=== PATIENT | female | born 1990 | race Caucasian/White ===

== ENCOUNTER 2022-08-27 07:57 | Emergency (ER) | payer OTHER, SELFPAY ==
--- NOTE | ~2022-08-27 | CT_ITS ---
EXAMINATION: CT ABDOMEN AND PELVIS WITHOUT CONTRAST CLINICAL INFORMATION: Right flank pain COMPARISON: None available. TECHNIQUE: Multidetector volumetric imaging was performed from the superior aspect of the liver through the pubic symphysis. Sagittal and coronal reformatted images were obtained on the technologist's workstation. This CT examination was performed using dose optimization techniques as appropriate, variously including the following: *Automated exposure control *Adjustment of mA and/or kV according to patient size (this includes techniques or standardized protocols for targeted exams where dose is matched to indication/reason for exam; i.e. extremities or head) *Use of iterative reconstruction technique DLP: 677 mGy-cm FINDINGS: LUNG BASES: The visualized lung bases are unremarkable. LIVER, GALLBLADDER, AND BILIARY TREE: The liver is normal in size, shape, and attenuation. No focal hepatic lesion or biliary ductal dilatation is present. The gallbladder is unremarkable with no evidence of radiopaque gallstones, gallbladder wall thickening, or obvious pericholecystic inflammatory changes. PANCREAS: Unremarkable. SPLEEN: Unremarkable. ADRENAL GLANDS: Unremarkable. KIDNEYS AND URETERS: Mild right hydronephrosis and ureteral dilatation from a 2 mm right distal ureteral stone. There are small punctate 1 to 2 mm stones in the upper pole of the right kidney. There are small punctate 1 to 2 mm stones in the lower pole of the left kidney. BLADDER: The bladder is empty and not well evaluated. GASTROINTESTINAL TRACT: The small and large bowel are unremarkable. The appendix is unremarkable. ABDOMINAL WALL: No significant hernia is appreciated. LYMPH NODES: Normal. VASCULAR: Unremarkable. PELVIC VISCERA: Unremarkable. OSSEOUS STRUCTURES: Unremarkable. CT/CT abdomen pelvis wo IV con IMPRESSION: Mild right hydronephrosis and ureteral dilatation from a 2 mm right distal ureteral stone. Small bilateral renal stones. Fleischner guidelines were followed.
[2022-08-27 08:10] VITALS: BP 131/59; BP 148/80; PULSE 56; PULSE 99; RESP 17; TEMP 36.7; O2SAT 98; O2SAT 99; BMI 28.8
[2022-08-27 08:19] VITALS: BP 131/59; PULSE 99; RESP 17; TEMP 36.7; O2SAT 98
--- NOTE | 2022-08-27 08:32 | ED_ITS ---
HPI - General Adult General Chief complaint: General Medical Stated complaint: nausea vomiting right flank pain Time Seen by Provider: 08/27/22 08:15 Source: patient Mode of arrival: ambulatory Limitations: no limitations History of Present Illness HPI narrative: 3 hours of intense right flank pain with nausea and vomiting radiating to the front Onset (ago): hour(s) Severity: moderate Quality: burning Pain Consistency: constant Related Data Previous Rx's Medication Instructions Recorded naproxen 500 mg tablet (Naprosyn) 500 mg PO BID #20 tabs 08/27/22 ondansetron 4 mg disintegrating 4 mg PO Q6H PRN nausea and 08/27/22 tablet vomiting #20 tabs tamsulosin 0.4 mg capsule (Flomax) 0.4 mg PO DAILY #20 caps 08/27/22 Allergies Allergy/AdvReac Type Severity Reaction Status Date / Time No Known Allergies Allergy Verified 08/27/22 08:34 Review of Systems Review of Systems: Yes all other systems are reviewed and are negative Gastrointestinal: Comments: nausea, vomiting and flank pain PMFSH Social History Social History Smoked in Last 30 Days: No Use of substances other than those prescribed or required for medical reasons: No Advance Directives: No Advance Directives Information Provided: Yes Physical Exam ED Vital Signs: Vital Signs - 24 hr 08/27/22 08:10 08/27/22 08:19 Temperature 98.1 F 98.1 F Pulse Rate 99 99 Respiratory Rate 17 17 Blood Pressure 131/59 L 131/59 L Pulse Oximetry 98 98 Oxygen Delivery Method Room Air Room Air BMI result Body Mass Index 28.8 Const General: healthy appearing Nutritional Appearance: average body habitus Orientation/consciousness: oriented to person and patient oriented x3 Limitations: no limitations HENMT Head: Yes normal to inspection Ears: external ears normal General nose exam: Normal external nose present Mouth: Normal oral and palatal mucosa present and oropharynx normal Throat: Yes posterior oropharynx normal Eyes General: appearance normal, both eyes and all related structures Neck Neck: Yes normal visual inspection Chest Chest palpation & inspection: normal inspection of the chest Resp Auscultation: clear to auscultation bilaterally Cardio Jugular venous distension: no JVD Rate: regular rate Rhythm: regular rhythm Heart sounds: S1 normal heart sound present and S2 normal heart sound present GI Inspection: Yes normal to inspection Palpation (GI): Soft to palpation, nontender and No hepatosplenomegaly present Auscultation: normal bowel sounds General: Yes no CVA tenderness Back/Spine/Pelvis Back: no CVA tenderness Skin General skin exam: no rashes or lesions noted Neuro General: oriented to person and patient oriented x3 Cranial nerves: Yes CN's II-XII intact bilaterally Motor exam (neuro): 5/5 motor strength present throughout Extrem General: Yes normal to inspection Psych Appearance: grossly normal Course Reevaluation(s) Reevaluation #1: Patient with 2mm stone at the UVJ will dc on nsaids, flomax zofran and follow up with Dr. Rivera Time: 12:32 Medications Administered Discontinued Medications Generic Name Dose Route Start Last Admin Trade Name Freq PRN Reason Stop Dose Admin Sodium Chloride 1,000 mls @ 999 mls/hr 08/27/22 08:45 08/27/22 12:23 Ns IVCONT 08/27/22 10:45 Infused .Q1H1M CAREN Infusion Ketorolac Tromethamine 30 mg 08/27/22 08:34 08/27/22 09:17 Ketorolac Tromethamine 30 Mg/Ml Vial IVPUSH 08/27/22 08:35 30 mg ONCE ONE Administration Ondansetron HCl 4 mg 08/27/22 08:37 08/27/22 09:16 Ondansetron Hcl 4 Mg/2 Ml Vial IVPUSH 08/27/22 08:38 4 mg ONCE ONE Administration Medical Decision Making Differential Diagnosis Differential Diagnoses: The differential diagnosis associated with the presentation includes (renal colic, hydronephrosis, Uti and pyelonephritis, a ppendicitis all considered) Admission/Observation Consideration of admission/observation: Escalation of care including admission/observation considered (with WBC of 14.8 and RLQ pain admission was considered) Lab Data MDM Lab Attestation statement: I reviewed the patient's lab results. 08/27/22 08:44 08/27/22 08:44 Labs: Lab Results 08/27/22 08/27/22 08/27/22 Range/Units 08:44 08:44 09:01 WBC 14.8 H (4.8-10.8) X10*3/uL RBC 5.00 (4.20-5.50) X10*6/uL Hgb 13.8 (12.0-16.0) g/dl Hct 43.1 (37.0-47.0) % MCV 86.2 (80.0-98.0) fL MCH 27.6 (27.0-33.0) pg MCHC 32.0 (31.0-35.0) g/dl RDW 13.2 (11.0-16.0) % Plt Count 296 (160-400) X10*3/uL MPV 11.0 (9.4-12.3) fL Immature Gran % (Auto) 0.5 H (0.0-0.4) % Neut % (Auto) 87.3 H (45-73) % Lymph % (Auto) 6.7 L (20-40) % [place] % (Auto) 4.6 (2-11) % Eos % (Auto) 0.5 (0-4) % Baso % (Auto) 0.4 (0-2) % Lymph # (Auto) 1.0 L (1.2-4.9) X10*3/uL [place] # (Auto) 0.7 (0.1-1.2) X10*3/uL Eos # (Auto) 0.1 (0.0-0.4) X10*3/uL Baso # (Auto) 0.1 (0.0-0.2) X10*3/uL Abs Immat Gran (auto) 0.07 H (0.00-0.03) X10*3/uL Absolute Neuts (auto) 12.9 H (2.0-8.3) x10*3/uL Absolute Nucleated RBC 0.000 (0.0-0.012) X10*3/uL Nucleated RBC % (auto) 0.0 (0.0-0.2) /100WBC Sodium 140 (135-145) mmol/L Potassium 4.4 (3.3-5.1) mmol/L Chloride 111 H (96-108) mmol/L Carbon Dioxide 22 (22-29) mmol/L Anion Gap 11 L (12-20) BUN 11 (9-16) mg/dL Creatinine 0.88 (0.5-1.4) mg/dL Estim Creat Clear Calc 100.3 Estimated GFR > 60 Random Glucose 97 (60-115) mg/dL Calcium 9.3 (8.4-10.2) mg/dL Urine Color Yellow Urine Appearance Cloudy Urine pH 5.5 (5.0-9.0) Ur Specific [place] 1.020 (1.005-1.025) Urine Protein Negative (Neg-Trace) mg/dL Urine Glucose (UA) Negative (Negative) mg/dL Urine Ketones Trace (Negative) mg/dL Urine Blood Negative (Negative) Urine Nitrite Negative (Negative) Ur Leukocyte Esterase Negative (Negative) Urine Test (NEGATIVE) 08/27/22 Range/Units 09:01 WBC (4.8-10.8) X10*3/uL RBC (4.20-5.50) X10*6/uL Hgb (12.0-16.0) g/dl Hct (37.0-47.0) % MCV (80.0-98.0) fL MCH (27.0-33.0) pg MCHC (31.0-35.0) g/dl RDW (11.0-16.0) % Plt Count (160-400) X10*3/uL MPV (9.4-12.3) fL Immature Gran % (Auto) (0.0-0.4) % Neut % (Auto) (45-73) % Lymph % (Auto) (20-40) % [place] % (Auto) (2-11) % Eos % (Auto) (0-4) % Baso % (Auto) (0-2) % Lymph # (Auto) (1.2-4.9) X10*3/uL [place] # (Auto) (0.1-1.2) X10*3/uL Eos # (Auto) (0.0-0.4) X10*3/uL Baso # (Auto) (0.0-0.2) X10*3/uL Abs Immat Gran (auto) (0.00-0.03) X10*3/uL Absolute Neuts (auto) (2.0-8.3) x10*3/uL Absolute Nucleated RBC (0.0-0.012) X10*3/uL Nucleated RBC % (auto) (0.0-0.2) /100WBC Sodium (135-145) mmol/L Potassium (3.3-5.1) mmol/L Chloride (96-108) mmol/L Carbon Dioxide (22-29) mmol/L Anion Gap (12-20) BUN (9-16) mg/dL Creatinine (0.5-1.4) mg/dL Estim Creat Clear Calc Estimated GFR Random Glucose (60-115) mg/dL Calcium (8.4-10.2) mg/dL Urine Color Urine Appearance Urine pH (5.0-9.0) Ur Specific [place] (1.005-1.025) Urine Protein (Neg-Trace) mg/dL Urine Glucose (UA) (Negative) mg/dL Urine Ketones (Negative) mg/dL Urine Blood (Negative) Urine Nitrite (Negative) Ur Leukocyte Esterase (Negative) Urine Test NEGATIVE (NEGATIVE) Independent Interpretation I performed an independent interpretation of an: CT Scan (Hydronephrosis and stones in the kidney) Radiology Impression Discussion of test interpretation with radiology: I have reviewed the radiologist's reading. (2mm stone seen at the UVJ) Discharge Plan Discharge Clinical Impression: Renal colic on right side Patient Disposition: Home, Self-Care Instructions: Renal Colic (ED) Prescriptions: New naproxen [Naprosyn] 500 mg tablet 500 mg PO BID Qty: 20 0RF ondansetron 4 mg tablet,disintegrating 4 mg PO Q6H PRN (Reason: nausea and vomiting) Qty: 20 0RF tamsulosin [Flomax] 0.4 mg capsule 0.4 mg PO DAILY Qty: 20 0RF Referrals: Anthony Rivera MD [Physician] - 5 days
[2022-08-27 08:51] LABS: MANUAL DIFF FLAG NO
[2022-08-27 08:53] LABS: Basophils Absolute Auto 0.1 X10*3/uL (0.0-0.2); Basophils Percent Auto 0.4 % (0-2); Eosinophils Absolute Auto 0.1 X10*3/uL (0.0-0.4); Eosinophils Percent Auto 0.5 % (0-4); Hematocrit 43.1 % (37.0-47.0); Hemoglobin 13.8 g/dl (12.0-16.0); Imm Gran Abs Auto 0.07 X10*3/uL (0.00-0.03); Imm Gran Pct Auto 0.5 % (0.0-0.4); Lymphocytes Percent Auto 6.7 % (20-40); Mean Corpuscular Hemoglobin 27.6 pg (27.0-33.0); Mean Corpuscular Volume 86.2 fL (80.0-98.0); Monocytes Absolute Auto 0.7 X10*3/uL (0.1-1.2); Monocytes Percent Auto 4.6 % (2-11); Neutrophils Absolute Auto 12.9 x10*3/uL (2.0-8.3); Neutrophils Percent Auto 87.3 % (45-73); Platelet Count 296 X10*3/uL (160-400); Red Cell Distribution Width 13.2 % (11.0-16.0); White Blood Count 14.8 X10*3/uL (4.8-10.8)
[2022-08-27 09:07] LABS: Anion Gap 11 (12-20); Blood Urea Nitrogen 11 mg/dL (9-16); Calcium 9.3 mg/dL (8.4-10.2); Carbon Dioxide 22 mmol/L (22-29); Chloride 111 mmol/L (96-108); Creatinine Clr Calc Pharmacy 100.3; Estimated Glomerular Filt Rate > 60; Glucose Random 97 mg/dL (60-115); Potassium 4.4 mmol/L (3.3-5.1); Sodium 140 mmol/L (135-145)
[2022-08-27] MEDS: 0.9 % Sodium Chloride 1,000 ML 999 ML IVCONT ×2 (09:14→09:20)
[2022-08-27] MEDS: ondansetron HCL 4 MG/2 ML VIAL IVPUSH (09:16)
[2022-08-27] MEDS: Ketorolac Tromethamine 30 MG/ML VIAL IVPUSH (09:17)
[2022-08-27 09:19] LABS: Appearance Urine Cloudy; Color Urine Yellow; Glucose Urine UA Negative (Negative); Leukocyte Esterase Urine Negative (Negative); Nitrite Urine Negative (Negative); PH 5.5 (5.0-9.0); UPreg QC Valid YES; Urine Blood Negative (Negative); Urine Ketones Trace mg/dL (Negative); Urine Pregnancy NEGATIVE (NEGATIVE); Urine Protein Negative (Neg-Trace)
--- NOTE | 2022-08-27 09:44 | PC.NURSE ---
pt a&o x4. pleasant, calm, and cooperative. IV access obtained by EMS prior to arrival. medicated per jun. resting quietly on stretcher, in no apparent distress. wctm
== END 2022-08-27 14:01 | disposition home or self-care (01) ==
PROVIDERS: Emergency Provider Emergency Medicine
DX: N23 Unspecified renal colic (principal); R11.2 Nausea with vomiting, unspecified; Z79.899 Other long term (current) drug therapy
CPT/HCPCS: 36415; 74176; 80048; 81003; 81025; 85025; 96361; 96374; 96375; 99284; J1885; J2405

== ENCOUNTER 2023-06-22 20:48 | Emergency (ER) | payer OTHER, SELFPAY ==
--- NOTE | ~2023-06-22 | CT_ITS ---
EXAMINATION: CT ABDOMEN AND PELVIS WITHOUT CONTRAST CLINICAL INFORMATION: Right flank pain COMPARISON: None available. TECHNIQUE: Multidetector volumetric imaging was performed from the superior aspect of the liver through the pubic symphysis. Sagittal and coronal reformatted images were obtained on the technologist's workstation. This CT examination was performed using dose optimization techniques as appropriate, variously including the following: *Automated exposure control *Adjustment of mA and/or kV according to patient size (this includes techniques or standardized protocols for targeted exams where dose is matched to indication/reason for exam; i.e. extremities or head) *Use of iterative reconstruction technique DLP: 501 mGy-cm FINDINGS: LUNG BASES: Lung bases are clear. LIVER, GALLBLADDER, AND BILIARY TREE: The liver is normal in size, shape, and attenuation. No focal hepatic lesion or biliary ductal dilatation is present. The gallbladder is unremarkable with no evidence of radiopaque gallstones, gallbladder wall thickening, or obvious pericholecystic inflammatory changes. PANCREAS: Unremarkable. SPLEEN: Unremarkable. ADRENAL GLANDS: Unremarkable. KIDNEYS AND URETERS: The kidneys are normal in size, shape, and attenuation. There are 2 mm punctate calculi in midpole both kidneys. The 5 cm right UVJ stone with mild hydroureteronephrosis. There is no left-sided hydronephrosis. BLADDER: Unremarkable. GASTROINTESTINAL TRACT: There is scattered stool and gas seen throughout the colon without significant distention. The small bowel loops are normal caliber. Appendix appears to have been removed with a surgical staple along the medial base of cecum. ABDOMINAL WALL: No significant hernia is appreciated. LYMPH NODES: Normal. VASCULAR: Unremarkable. PELVIC VISCERA: The uterus is anteverted and appears unremarkable. No adnexal mass or free fluid. No abnormal pelvic lymphadenopathy. OSSEOUS STRUCTURES: Unremarkable CT/CT abdomen pelvis wo IV con IMPRESSION: 5 mm obstructive right UVJ stone with mild hydroureteronephrosis. Nonobstructive bilateral radiopaque renal calculi. Mild constipation. Fleischner guidelines were followed.
[2023-06-22 20:56] VITALS: BP 150/87; PULSE 76; RESP 20; TEMP 36.6; O2SAT 99; BMI 28.5
[2023-06-22 21:11] LABS: MANUAL DIFF FLAG NO
[2023-06-22 21:12] LABS: Basophils Percent Auto 0.3 % (0-2); Eosinophils Absolute Auto 0.1 X10*3/uL (0.0-0.4); Eosinophils Percent Auto 0.6 % (0-4); Hematocrit 44.7 % (37.0-47.0); Hemoglobin 14.4 g/dl (12.0-16.0); Imm Gran Abs Auto 0.06 X10*3/uL (0.00-0.03); Imm Gran Pct Auto 0.4 % (0.0-0.4); Lymphocytes Absolute Auto 2.2 X10*3/uL (1.2-4.9); Lymphocytes Percent Auto 14.8 % (20-40); Mean Corpuscular HGB Conc 32.2 g/dl (31.0-35.0); Mean Corpuscular Hemoglobin 27.9 pg (27.0-33.0); Mean Corpuscular Volume 86.5 fL (80.0-98.0); Mean Platelet Volume 10.9 fL (9.4-12.3); Monocytes Absolute Auto 1.2 X10*3/uL (0.1-1.2); Monocytes Percent Auto 7.8 % (2-11); Neutrophils Absolute Auto 11.3 x10*3/uL (2.0-8.3); Neutrophils Percent Auto 76.1 % (45-73); Platelet Count 333 X10*3/uL (160-400); Red Blood Count 5.17 X10*6/uL (4.20-5.50); White Blood Count 14.9 X10*3/uL (4.8-10.8)
--- NOTE | 2023-06-22 21:30 | ED_ITS ---
HPI - Abdominal Pain General Chief Complaint: Back Pain/Injury Stated Complaint: lower back pain Time Seen by Provider: 06/22/23 21:17 Source: patient Mode of arrival: ambulatory Limitations: no limitations History of Present Illness HPI narrative: Patient history of kidney stone reduced sudden onset of the pain in the right flank since 14:00 with nausea and vomiting feels same kind of pain as when she had kidney stone pain radiating from right flank to the right lower abdomen no hematuria no dysuria Related Data Previous Rx's Medication Instructions Recorded morphine 15 mg immediate release 15 mg PO Q8H PRN pain #15 tabs 06/23/23 tablet ondansetron 4 mg disintegrating 4 mg PO Q6-8H PRN nausea and 06/23/23 tablet vomiting #10 tabs tamsulosin 0.4 mg capsule (Flomax) 0.4 mg PO BEDTIME #10 caps 06/23/23 Allergies Allergy/AdvReac Type Severity Reaction Status Date / Time acetaminophen [From Percocet] Allergy Difficulty Verified 06/22/23 20:56 Breathing oxycodone [From Percocet] Allergy Difficulty Verified 06/22/23 20:56 Breathing Review of Systems Review of Systems Yes all other systems are reviewed and are negative [facility] Social History Social History Smoked in Last 30 Days: No Use of substances other than those prescribed or required for medical reasons: No Advance Directives: No Advance Directives Information Provided: No Physical Exam ED Vital Signs: Vital Signs - 24 hr 06/22/23 20:56 06/22/23 23:33 06/23/23 06:30 Temperature 97.8 F 98 F 98.3 F Pulse Rate 76 60 81 Respiratory Rate 20 16 16 Blood Pressure 150/87 H 118/66 135/85 Pulse Oximetry 99 98 98 Oxygen Delivery Method Room Air Room Air Room Air BMI result Body Mass Index 28.5 Appearance: Alert. Oriented X3. in Severe distress Eyes: No pallor or icterus ENT: Pharynx normal. Oral Mucosa moist Neck: Normal inspection. Neck supple. CVS: Normal heart rate and rhythm. Pulses normal. Respiratory: No respiratory distress. Equal air entry bilateral, no wheezing/rales/rhonchi Abdomen: Soft and nontender. Bowel sounds are present, no mass palpable,R CVA tenderness Skin: Skin warm and dry. Normal skin color. Normal skin turgor. Extremities: No lower extremity edema. No calf tenderness Neuro: Oriented X 3. No motor deficit. Medical Decision Making Medical Decision Making [facility] Narrative: Patient's 5 mm right UVJ stone improved after IV hydration pain medication discharge patient home follow with urologist Differential Diagnosis Differential Diagnoses: The differential diagnosis associated with the presentation includes Renal colic UTI Lab Data [facility] Lab Attestation statement: I reviewed the patient's lab results. 06/22/23 21:05 06/22/23 21:05 Labs: Lab Results 06/22/23 06/23/23 Range/Units 21:05 00:39 WBC 14.9 H (4.8-10.8) X10*3/uL RBC 5.17 (4.20-5.50) X10*6/uL Hgb 14.4 (12.0-16.0) g/dl Hct 44.7 (37.0-47.0) % MCV 86.5 (80.0-98.0) fL MCH 27.9 (27.0-33.0) pg MCHC 32.2 (31.0-35.0) g/dl RDW 13.0 (11.0-16.0) % Plt Count 333 (160-400) X10*3/uL MPV 10.9 (9.4-12.3) fL Immature Gran % (Auto) 0.4 (0.0-0.4) % Neut % (Auto) 76.1 H (45-73) % Lymph % (Auto) 14.8 L (20-40) % [place] % (Auto) 7.8 (2-11) % Eos % (Auto) 0.6 (0-4) % Baso % (Auto) 0.3 (0-2) % Lymph # (Auto) 2.2 (1.2-4.9) X10*3/uL [place] # (Auto) 1.2 (0.1-1.2) X10*3/uL Eos # (Auto) 0.1 (0.0-0.4) X10*3/uL Baso # (Auto) 0.0 (0.0-0.2) X10*3/uL Abs Immat Gran (auto) 0.06 H (0.00-0.03) X10*3/uL Absolute Neuts (auto) 11.3 H (2.0-8.3) x10*3/uL Absolute Nucleated RBC 0.000 (0.0-0.012) X10*3/uL Nucleated RBC % (auto) 0.0 (0.0-0.2) /100WBC Sodium 140 (135-145) mmol/L Potassium 3.9 (3.3-5.1) mmol/L Chloride 104 (96-108) mmol/L Carbon Dioxide 28 (22-29) mmol/L Anion Gap 12 (12-20) BUN 11 (9-16) mg/dL Creatinine 0.84 (0.5-1.4) mg/dL Estim Creat Clear Calc 104.2 Estimated GFR > 60 Random Glucose 114 (60-115) mg/dL Calcium 9.7 (8.4-10.2) mg/dL Total Bilirubin 0.6 (0.0-1.0) mg/dL Direct Bilirubin 0.2 (0.0-0.5) mg/dL AST 19 (5-31) U/L ALT 20 (0-31) U/L Alkaline Phosphatase 59 (39-117) U/L Total Protein 7.7 (6.5-8.0) g/dL Albumin 4.5 (3.5-5.0) g/dL Beta HCG, Quant < 2 mIU/mL Urine Color Yellow Urine Appearance Turbid Urine pH 5.5 (5.0-9.0) Ur Specific [place] 1.025 (1.005-1.025) Urine Protein Trace (Neg-Trace) mg/dL Urine Glucose (UA) Negative (Negative) mg/dL Urine Ketones 15 (Negative) mg/dL Urine Blood Negative (Negative) Urine Nitrite Negative (Negative) Ur Leukocyte Esterase Trace H (Negative) Urine RBC 0-2 (0-2) /HPF Urine WBC 0-5 (0-5) /HPF Ur Squamous Epith Cells 6-10 (0-2) /HPF Urine Bacteria 1+ (None Seen) Hyaline Casts 0-2 (0-2) /LPF Independent Interpretation I performed an independent interpretation of an: CT Scan Radiology Impression Discussion of test interpretation with radiology: I have reviewed the radiologist's reading. Medications Administered Discontinued Medications Generic Name Dose Route Start Last Admin Trade Name Freq PRN Reason Stop Dose Admin Hydromorphone HCl 1 mg 06/23/23 00:54 06/23/23 02:03 Hydromorphone Hcl 1 Mg/Ml Syringe IVPUSH 06/23/23 00:55 1 mg ONCE ONE Administration Protocol Sodium Chloride 1,000 mls @ 999 mls/hr 06/22/23 21:30 06/22/23 22:58 Ns IV 06/22/23 22:30 Infused .Q1H1M ONE Infusion Sodium Chloride 1,000 mls @ 999 mls/hr 06/22/23 23:15 06/23/23 00:34 Ns IV 06/23/23 00:15 Infused .Q1H1M ONE Infusion Sodium Chloride 1,000 mls @ 999 mls/hr 06/23/23 00:54 06/23/23 03:05 Ns IV 06/23/23 01:54 Infused .Q1H1M ONE Infusion Ketorolac Tromethamine 30 mg 06/22/23 21:30 06/22/23 21:42 Ketorolac Tromethamine 30 Mg/Ml Vial IVPUSH 06/22/23 21:31 30 mg ONCE ONE Administration Morphine Sulfate 4 mg 06/22/23 21:30 06/22/23 21:42 Morphine Sulfate 4 Mg/Ml Cartridge IVPUSH 06/22/23 21:31 4 mg ONCE ONE Administration Protocol Morphine Sulfate 2 mg 06/22/23 23:15 06/22/23 23:30 Morphine Sulfate 2 Mg/Ml Cartridge IVPUSH 06/22/23 23:16 2 mg ONCE ONE Administration Protocol Ondansetron HCl 4 mg 06/22/23 21:30 06/22/23 21:42 Ondansetron Hcl 4 Mg/2 Ml Vial IVPUSH 06/22/23 21:31 4 mg ONCE ONE Administration Ondansetron HCl 4 mg 06/23/23 00:54 06/23/23 02:03 Ondansetron Hcl 4 Mg/2 Ml Vial IVPUSH 06/23/23 00:55 4 mg ONCE ONE Administration Tamsulosin HCl 0.4 mg 06/22/23 23:11 06/22/23 23:30 Tamsulosin Hcl 0.4 Mg Capsule PO 06/22/23 23:12 0.4 mg ONCE ONE Administration Critical Care Time Critical Care Time Critical Care Time: Yes Total Critical Care Time: 55 Attestation: The patient was critically ill with a high probability of imminent or life threatening deterioration. I spent greater than ?60??minutes of discontinuous time evaluating the patient,delivering critical care at the bedside, discussing and evaluating pertinent data with consultants. Critical care time does not include time spent performing separately billable procedures or teaching. Total time spent performing critical care was ?55??minutes. Discharge Plan Discharge Clinical Impression: Calculus of distal right ureter Patient Disposition: Home, Self-Care Instructions: Ureteral Stones (ED) Additional Instructions: Drink plenty of fluids Take pain medication and Flomax as prescribed Follow-up with urologist Report to the ER if pain gets worse Prescriptions: New morphine 15 mg tablet 15 mg PO Q8H PRN (Reason: pain) Qty: 15 0RF Rx Instructions: Partial Fill upon patient request. ondansetron 4 mg tablet,disintegrating 4 mg PO Q6-8H PRN (Reason: nausea and vomiting) Qty: 10 0RF tamsulosin [Flomax] 0.4 mg capsule 0.4 mg PO BEDTIME Qty: 10 0RF Referrals: Anthony Rivera MD [Physician] - 3 days Interventions: ED Discharge Assessment Last Done: 06/23/23 06:31 Discharge Date/Time: 06/23/23 06:31
[2023-06-22 21:34] LABS: Alanine Aminotransferase 20 U/L (0-31); Albumin Level 4.5 g/dL (3.5-5.0); Alkaline Phosphatase 59 U/L (39-117); Anion Gap 12 (12-20); Aspartate Amino Transferase 19 U/L (5-31); Bilirubin Direct 0.2 mg/dL (0.0-0.5); Bilirubin Total 0.6 mg/dL (0.0-1.0); Blood Urea Nitrogen 11 mg/dL (9-16); Calcium 9.7 mg/dL (8.4-10.2); Carbon Dioxide 28 mmol/L (22-29); Chloride 104 mmol/L (96-108); Creatinine Clr Calc Pharmacy 104.2; Estimated Glomerular Filt Rate > 60; Glucose Random 114 mg/dL (60-115); HCG Quantitative < 2 mIU/mL; Potassium 3.9 mmol/L (3.3-5.1); Sodium 140 mmol/L (135-145); Total Protein 7.7 g/dL (6.5-8.0)
[2023-06-22] MEDS: Ketorolac Tromethamine 30 MG/ML VIAL IVPUSH (21:42)
[2023-06-22] MEDS: ondansetron HCL 4 MG/2 ML VIAL IVPUSH (21:42)
[2023-06-22] MEDS: Morphine Sulfate 4 MG/ML CARTRIDGE IVPUSH (21:42)
[2023-06-22] MEDS: 0.9 % Sodium Chloride 1,000 ML 999 ML IV ×2 (21:43→23:30)
[2023-06-22] MEDS: Morphine Sulfate 2 MG/ML CARTRIDGE IVPUSH (23:30)
[2023-06-22] MEDS: Tamsulosin HCL 0.4 MG CAPSULE PO (23:30)
[2023-06-22 23:33] VITALS: BP 118/66; PULSE 60; RESP 16; TEMP 36.6; O2SAT 98
[2023-06-23 00:45] LABS: Appearance Urine Turbid; Color Urine Yellow; Glucose Urine UA Negative (Negative); Leukocyte Esterase Urine Trace (Negative); Nitrite Urine Negative (Negative); PH 5.5 (5.0-9.0); Specific Gravity - Urine 1.025 (1.005-1.025); UMIC TRIGGER UACC YES; Urine Blood Negative (Negative); Urine Ketones 15 mg/dL (Negative); Urine Protein Trace mg/dL (Neg-Trace)
[2023-06-23 00:57] LABS: Bacteria Urine 1+ (None Seen); Hyaline Casts Urine 0-2 /LPF (0-2); RBC Urine 0-2 /HPF (0-2); WBC Urine 0-5 /HPF (0-5)
[2023-06-23] MEDS: HYDROmorphone HCl 1 MG/ML SYRINGE IVPUSH (02:03)
[2023-06-23] MEDS: 0.9 % Sodium Chloride 1,000 ML 999 ML IV (02:03)
[2023-06-23] MEDS: ondansetron HCL 4 MG/2 ML VIAL IVPUSH (02:03)
[2023-06-23 06:30] VITALS: BP 135/85; PULSE 81; RESP 16; TEMP 36.8; O2SAT 98
== END 2023-06-23 06:31 | disposition home or self-care (01) ==
PROVIDERS: Emergency Provider Internal Medicine
DX: N20.1 Calculus of ureter (principal); R11.2 Nausea with vomiting, unspecified; R10.31 Right lower quadrant pain
CPT/HCPCS: 36415; 74176; 80048; 80076; 81001; 84702; 85025; 96361; 96374; 96375; 96376; 99284; 99285; J1170; J1885; J2270; J2405

== ENCOUNTER 2023-06-24 10:52 | Emergency (ER) | payer OTHER, SELFPAY ==
--- NOTE | ~2023-06-24 | US_ITS ---
EXAMINATION: US RETROPERITONEAL LIMITED (RENAL ONLY) CLINICAL INFORMATION: Right ureteral stone,? Hydronephrosis. COMPARISON: CT scan abdomen and pelvis 06/22/2023 TECHNIQUE: Real-time ultrasound of the kidneys. FINDINGS: RIGHT KIDNEY: 12.8 x 6.1 x 6.1 cm (SAG x AP x TRV). The kidney is normal in size, contour, and echogenicity. Renal cortical thickness is normal. No calculi or focal parenchymal lesions. There is mild hydronephrosis. LEFT KIDNEY: 12.3 x 5.6 x 6.0 cm (SAG x AP x TRV). The kidney is normal in size, contour, and echogenicity. Renal cortical thickness is normal. No calculi. No hydronephrosis. 0.9 x 0.7 x 0.7 cm simple cyst is seen in the upper pole cortex. No imaging follow-up is recommended. US/US renal BI IMPRESSION: Mild right hydronephrosis.
[2023-06-24 11:12] VITALS: BP 130/92; PULSE 90; RESP 19; TEMP 36.6; O2SAT 100; BMI 27.9
[2023-06-24 11:34] LABS: MANUAL DIFF FLAG NO
[2023-06-24 11:36] LABS: Appearance Urine Clear; Color Urine Yellow; Glucose Urine UA Negative (Negative); Leukocyte Esterase Urine Small (1+) (Negative); Nitrite Urine Negative (Negative); UMIC TRIGGER UACC YES; Urine Blood Negative (Negative); Urine Ketones Negative (Negative); Urine Protein Negative (Neg-Trace)
[2023-06-24 11:44] LABS: Bacteria Urine 1+ (None Seen); Hyaline Casts Urine 0-2 /LPF (0-2); RBC Urine 0-2 /HPF (0-2); UACC Culture Trigger YES
[2023-06-24 11:45] LABS: Basophils Percent Auto 0.4 % (0-2); Eosinophils Absolute Auto 0.1 X10*3/uL (0.0-0.4); Hematocrit 38.6 % (37.0-47.0); Hemoglobin 12.6 g/dl (12.0-16.0); Imm Gran Abs Auto 0.02 X10*3/uL (0.00-0.03); Imm Gran Pct Auto 0.3 % (0.0-0.4); Lymphocytes Absolute Auto 1.5 X10*3/uL (1.2-4.9); Lymphocytes Percent Auto 19.1 % (20-40); Mean Corpuscular HGB Conc 32.6 g/dl (31.0-35.0); Mean Corpuscular Hemoglobin 28.6 pg (27.0-33.0); Mean Corpuscular Volume 87.7 fL (80.0-98.0); Mean Platelet Volume 11.3 fL (9.4-12.3); Monocytes Absolute Auto 0.9 X10*3/uL (0.1-1.2); Monocytes Percent Auto 10.9 % (2-11); Neutrophils Absolute Auto 5.5 x10*3/uL (2.0-8.3); Neutrophils Percent Auto 68.3 % (45-73)
--- NOTE | 2023-06-24 11:46 | ED.FEMALEGU ---
HPI - Female Genitourinary General Chief complaint: Urogenital-Female Stated complaint: Kidney stone hasnt passed Time Seen by Provider: 06/24/23 12:23 Source: patient, RN notes reviewed and old records reviewed Mode of arrival: ambulatory Limitations: no limitations History of Present Illness HPI Narrative: 33 year old female with pmhx significant for renal colic presents to the ED today for evaluation of right flank pain x2 days. She was seen in our ED 2 days ago for same and diagnosed with 5mm obstructive right UVJ stone with mild hydroureternephrosis. She was administered pain medication, IV fluids and discharged home with morphine, Zofran and tamsulosin. She states that she has been taking these over the last 2 days without resolution of right flank pain. Her last dose of these medications was at 6:00 a.m. this morning. She now endorses dysuria and urinating small amounts. Denies hematuria. She reports associated nausea and vomiting. Denies fever, chills, abdominal pain, diarrhea, constipation. MD elicited complaint: flank pain Onset (ago): day(s) Location of symptoms: flank Severity: moderate Female Urogenital Radiation: Non-Radiating Quality of pain: sharp Consistency: constant Vaginal discharge: none Vaginal bleeding: none Exacerbating factors: none Relieving factors: none Associated symptoms: denies other symptoms Patient : No Related Data Previous Rx's Medication Instructions Recorded naproxen 500 mg tablet (Naprosyn) 500 mg PO BID #20 tabs 08/27/22 ondansetron 4 mg disintegrating 4 mg PO Q6H PRN nausea and 08/27/22 tablet vomiting #20 tabs tamsulosin 0.4 mg capsule (Flomax) 0.4 mg PO DAILY #20 caps 08/27/22 morphine 15 mg immediate release 15 mg PO Q8H PRN pain #15 tabs 06/23/23 tablet ondansetron 4 mg disintegrating 4 mg PO Q6-8H PRN nausea and 06/23/23 tablet vomiting #10 tabs tamsulosin 0.4 mg capsule (Flomax) 0.4 mg PO BEDTIME #10 caps 06/23/23 prednisone 20 mg tablet 40 mg (2 x 20 mg) PO DAILY 4 days 06/24/23 #8 tabs Allergies Allergy/AdvReac Type Severity Reaction Status Date / Time acetaminophen [From Percocet] Allergy Difficulty Verified 06/24/23 12:28 Breathing oxycodone [From Percocet] Allergy Difficulty Verified 06/24/23 12:28 Breathing Review of Systems Review of Systems: Constitutional: No fever, chills, fatigue, night sweats, weight changes ENT/Mouth: No ear pain, hearing loss, nasal congestion, sinus pain, rhinorrhea, sore throat Eyes: No eye pain, swelling, redness, vision changes, discharge Cardio: No chest pain, palpitations, ROSSI, orthopnea, peripheral edema Pulm: No SOB, cough, sputum, wheezing, dyspnea, hemoptysis GI: No nausea, vomiting, hematemesis, abdominal pain, diarrhea, constipation, hematochezia, melena : No irregular bleeding, frequency, urgency, hesitancy, hematuria, urinary flow changes, urinary incontinence or retention, +urinary retention, +dysuria, +right flank pain MSK: No back pain, neck pain, joint pain, myalgias Skin: No lesions, rashes Neuro: No weakness, numbness, paresthesias, LOC, dizziness, headache Psych: No anxiety/panic, depression, SI/HI, AH/VH All other systems reviewed and are negative. [facility] Past Medical History Attestation statement: The following information was validated with the patient. Source: old records reviewed and nursing notes reviewed Social History Social History Smoked in Last 30 Days: No Use of substances other than those prescribed or required for medical reasons: No Advance Directives: No Physical Exam Vital Signs: Vital Signs: Last Vital Signs Temp 98.3 F 06/24/23 12:26 Pulse 75 06/24/23 12:26 Resp 20 06/24/23 12:26 BP 118/70 06/24/23 12:26 Pulse Ox 100 06/24/23 12:26 O2 Del Method Room Air 06/24/23 12:26 BMI result Body Mass Index 27.9 Vital signs stable, afebrile Const: General: cooperative, healthy appearing, comfortable and no acute distress Orientation/consciousness: patient oriented x3 Limitations: no limitations HEENT: Head: Yes normocephalic and Yes atraumatic Eyes: General: appearance normal, both eyes and all related structures Conjunctivae: conjunctivae normal Sclerae: sclerae normal Pupils: Equal, round and reactive pupils present Neck: Neck: Yes normal visual inspection, Yes full ROM and Yes no lymphadenopathy Resp: Effort & Inspection: normal respiratory effort Auscultation: clear to auscultation bilaterally Cardio: Rate: regular rate Rhythm: regular rhythm GI: Other: + abdomen soft, nontender, nondistended, no rebound tenderness or guarding. Normoactive bowel sounds x4. Bladder not palpable. : General: Yes no CVA tenderness Back/Spine/Pelvis: Back: no CVA tenderness Skin: General skin exam: no rashes or lesions noted Neuro: General: patient oriented x3 and gait normal Cranial nerves: Yes Equal, round and reactive pupils present Extrem: General: Yes normal to inspection Course Course Course Narrative: MYRA 11AM - 33-year-old female with a past medical history of kidney stones presenting to the ER with complaints of worse right flank pain with decreased urination over the past few days worse today. Reports she was seen here on 06/22/2023 and diagnosed with a 5 mm obstructive right UVJ stone with mild hydro. Reports she was given morphine, IV fluids and report her symptoms were improved. Although she is no longer able to tolerate the medications at home and she is having large amounts of nausea and vomiting decreased p.o. intake therefore she is concerned she denies fevers, dysuria, hematuria, abnormal vaginal discharge or any other symptoms complaints or concerns. Plan: Labs and ultrasound along with UA ordered at this time. Patient will be sent back to the waiting room to be evaluated in the ED. Reevaluation(s) Reevaluation #1: 1240-- CBC without leukocytosis or left shift. No anemia. H&H stable. Chemistry without acute electrolyte abnormality requiring intervention. Urine with small amount of leukocyte esterase, 11-20 WBC, 6-10 epithelial cells and 1+ bacteria > likely contamination. > pending renal ultrasound. Patient receiving IV fluids and pain control. 1420--ultrasound of bilateral kidneys shows mild right hydronephrosis. This is compared to CT abdomen/pelvis obtained 2 days ago > findings are unchanged. There is no concern for worsening obstruction/ hydronephrosis. Given stone was identified at UVJ 2 days ago, she should be passing it soon. > on re-evaluation, patient sleeping comfortably in bed. She states that her pain is still there however improved with medication. I discussed treatment options with patient. I gave her the option of reaching out to urology due to continued pain. I explained to the process of stents/lithotripsy. We also discussed adding prednisone to her medication regimen to help with inflammation and following up outpatient. Patient states that she would like to begin Prednisone and be discharged home, with the hope that the stone passes soon. Given unremarkable labs/imaging workup and stable vitals, I feel comfortable discharging patient home with follow-up. She states she still has morphine, Zofran and tamsulosin at home. Patient has remained stable throughout ED visit today. Discussed worrisome signs and symptoms and when to return to the ED. All questions answered at this time. Patient is agreeable with disposition and stable for discharge. Medications Administered Discontinued Medications Generic Name Dose Route Start Last Admin Trade Name Freq PRN Reason Stop Dose Admin Sodium Chloride 1,000 mls @ 999 mls/hr 06/24/23 12:45 06/24/23 14:32 Ns IV 06/24/23 13:45 Infused .Q1H1M CAREN Infusion Morphine Sulfate 2 mg 06/24/23 12:32 06/24/23 12:43 Morphine Sulfate 2 Mg/Ml Cartridge IVPUSH 06/24/23 12:33 2 mg ONCE ONE Administration Protocol Ondansetron HCl 4 mg 06/24/23 12:32 06/24/23 12:43 Ondansetron Hcl 4 Mg/2 Ml Vial IVPUSH 06/24/23 12:33 4 mg ONCE ONE Administration Prednisone 40 mg 06/24/23 14:15 06/24/23 14:29 Prednisone 20 Mg Tablet PO 06/24/23 14:16 40 mg ONCE ONE Administration Medical Decision Making Medical Decision Making MDM Narrative: 33 year old female with pmhx significant for renal colic presents to the ED today for evaluation of right flank pain x2 days. Patient initially hypertensive, now WNL. Vital signs stable. She is nontoxic-appearing and in no acute distress. On exam, abdomen is soft, nondistended, nontender to palpation. No rebound tenderness or guarding. Bladder not palpable. Normoactive bowel sounds x4. No CVAT bilaterally. Differential diagnosis includes renal colic, nephrolithiasis, UVJ stone, obstructive uropathy, hydronephrosis, hydroureternephrosis, UTI. Basic labs and UA obtained in triage. Given patient had CT abdomen/pelvis 2 days ago, will order initial renal ultrasound. IVF and pain control ordered. Differential Diagnosis Differential Diagnoses: The differential diagnosis associated with the presentation includes As above Admission/Observation Consideration of admission/observation: Escalation of care including admission/observation considered Lab Data MDM Lab Attestation statement: I reviewed the patient's lab results. As above 06/24/23 11:27 06/24/23 11:27 Labs: Lab Results 06/24/23 06/24/23 Range/Units 11:27 11:28 WBC 8.0 (4.8-10.8) X10*3/uL RBC 4.40 (4.20-5.50) X10*6/uL Hgb 12.6 (12.0-16.0) g/dl Hct 38.6 (37.0-47.0) % MCV 87.7 (80.0-98.0) fL MCH 28.6 (27.0-33.0) pg MCHC 32.6 (31.0-35.0) g/dl RDW 13.0 (11.0-16.0) % Plt Count 193 D (160-400) X10*3/uL MPV 11.3 (9.4-12.3) fL Immature Gran % (Auto) 0.3 (0.0-0.4) % Neut % (Auto) 68.3 (45-73) % Lymph % (Auto) 19.1 L (20-40) % Rush % (Auto) 10.9 (2-11) % Eos % (Auto) 1.0 (0-4) % Baso % (Auto) 0.4 (0-2) % Lymph # (Auto) 1.5 (1.2-4.9) X10*3/uL Rush # (Auto) 0.9 (0.1-1.2) X10*3/uL Eos # (Auto) 0.1 (0.0-0.4) X10*3/uL Baso # (Auto) 0.0 (0.0-0.2) X10*3/uL Abs Immat Gran (auto) 0.02 (0.00-0.03) X10*3/uL Absolute Neuts (auto) 5.5 (2.0-8.3) x10*3/uL Absolute Nucleated RBC 0.000 (0.0-0.012) X10*3/uL Nucleated RBC % (auto) 0.0 (0.0-0.2) /100WBC Sodium 140 (135-145) mmol/L Potassium 4.0 (3.3-5.1) mmol/L Chloride 107 (96-108) mmol/L Carbon Dioxide 28 (22-29) mmol/L Anion Gap 9 L (12-20) BUN 8 L (9-16) mg/dL Creatinine 1.14 (0.5-1.4) mg/dL Estim Creat Clear Calc 75.6 Estimated GFR 56 Random Glucose 97 (60-115) mg/dL Calcium 9.0 D (8.4-10.2) mg/dL Magnesium 1.9 (1.6-2.6) mg/dL Total Bilirubin 0.5 (0.0-1.0) mg/dL Direct Bilirubin 0.2 (0.0-0.5) mg/dL AST 15 (5-31) U/L ALT 14 (0-31) U/L Alkaline Phosphatase 50 (39-117) U/L Total Protein 6.3 L (6.5-8.0) g/dL Albumin 3.7 (3.5-5.0) g/dL Lipase 14 (8-78) U/L Urine Color Yellow Urine Appearance Clear Urine pH 6.0 (5.0-9.0) Ur Specific Randolph 1.010 (1.005-1.025) Urine Protein Negative (Neg-Trace) mg/dL Urine Glucose (UA) Negative (Negative) mg/dL Urine Ketones Negative (Negative) mg/dL Urine Blood Negative (Negative) Urine Nitrite Negative (Negative) Ur Leukocyte Esterase Small (1+) H (Negative) Urine RBC 0-2 (0-2) /HPF Urine WBC 11-20 H (0-5) /HPF Ur Squamous Epith Cells 6-10 (0-2) /HPF Urine Bacteria 1+ (None Seen) Hyaline Casts 0-2 (0-2) /LPF Independent Interpretation I performed an independent interpretation of an: Ultrasound and CT Scan Interpretation: I have reviewed ultrasound of bilateral kidneys and agree with radiologist's interpretation. I performed an independent interpretation of CT abdomen/pelvis obtained on 06/22/2023 and appreciate a right UVJ stone. Agree with radiologist's interpretation. Radiology Impression Discussion of test interpretation with radiology: I have reviewed the radiologist's reading. Radiologist Impression: CT abdomen pelvis wo IV con IMPRESSION: 5 mm obstructive right UVJ stone with mild hydroureteronephrosis. Nonobstructive bilateral radiopaque renal calculi. Mild constipation. Fleischner guidelines were followed. US renal BI IMPRESSION: Mild right hydronephrosis External Record Review External record reviewed: Inpatient record, Office record, Outpatient record, Prior outpatient labs, Prior outpatient radiology, Primary care record and Outside ED record Prescription Management I considered prescription management with: Pain Medication and Other (Prednisone) Social Determinants Patient?s care significantly limited by Social Determinants of Health including: Other Social Determinant of Health Critical Care Time Critical Care Time Critical Care Time: Yes Total Critical Care Time: 35 Attestation: Critical care time in the amount of 35 minutes has been provided to the patient in terms of direct patient care, frequent reevaluation on IV morphine, review and interpretation of medical data and results, and management of potentially life-threatening conditions. This is all outside of any medical procedures. Discharge Plan Discharge Clinical Impression: Calculus of ureterovesical junction (UVJ), Renal colic Patient Disposition: Home, Self-Care Instructions: Renal Colic (ED), Low Oxalate Diet (ED), Ureteral Stones (ED), Lithotripsy (DC) Additional Instructions: Your labs today are reassuring. Your kidney function is normal. The ultrasound of your kidneys shows stable hydronephrosis of the right kidney. This is unchanged from your CT scan 2 days ago. Your stone is located at the right UVJ which means that it is close to passage. Prednisone is a steroid that has been sent to your pharmacy to help with inflammation. Begin taking this tomorrow as you received a dose of this in the emergency department today. Take this once a day over the next 4 days. This will help with stone passage. Continue taking tamsulosin at home to help flush the stone. Continue taking Zofran at home as needed for nausea/vomiting. Continue taking morphine at home as needed for breakthrough pain. You may also take ibuprofen which will help decrease inflammation as well. You may call [facility], Dr. Rivera, to establish care as kidney stones can recur. You were given this contact information at last visit. Please return to the ED for new or worsening symptoms. In the case of emergency call 911. Prescriptions: New prednisone 20 mg tablet 40 mg PO DAILY 4 Days Qty: 8 0RF No Action naproxen [Naprosyn] 500 mg tablet 500 mg PO BID Qty: 20 0RF ondansetron 4 mg tablet,disintegrating 4 mg PO Q6H PRN (Reason: nausea and vomiting) Qty: 20 0RF tamsulosin [Flomax] 0.4 mg capsule 0.4 mg PO DAILY Qty: 20 0RF morphine 15 mg tablet 15 mg PO Q8H PRN (Reason: pain) Qty: 15 0RF Rx Instructions: Partial Fill upon patient request. ondansetron 4 mg tablet,disintegrating 4 mg PO Q6-8H PRN (Reason: nausea and vomiting) Qty: 10 0RF tamsulosin [Flomax] 0.4 mg capsule 0.4 mg PO BEDTIME Qty: 10 0RF Referrals: [facility] [Provider Group] Stand Alone Forms: Work/School Release Interventions: ED Discharge Assessment Last Done: 06/24/23 14:35 Discharge Date/Time: 06/24/23 14:35
[2023-06-24 11:48] LABS: Platelet Count 193 X10*3/uL (160-400)
[2023-06-24 11:50] LABS: Alanine Aminotransferase 14 U/L (0-31); Albumin Level 3.7 g/dL (3.5-5.0); Alkaline Phosphatase 50 U/L (39-117); Anion Gap 9 (12-20); Aspartate Amino Transferase 15 U/L (5-31); Bilirubin Direct 0.2 mg/dL (0.0-0.5); Bilirubin Total 0.5 mg/dL (0.0-1.0); Blood Urea Nitrogen 8 mg/dL (9-16); Carbon Dioxide 28 mmol/L (22-29); Chloride 107 mmol/L (96-108); Creatinine Clr Calc Pharmacy 75.6; Estimated Glomerular Filt Rate 56; Glucose Random 97 mg/dL (60-115); Lipase 14 U/L (8-78); Magnesium 1.9 mg/dL (1.6-2.6); Sodium 140 mmol/L (135-145); Total Protein 6.3 g/dL (6.5-8.0)
[2023-06-24 12:26] VITALS: BP 118/70; PULSE 75; RESP 20; TEMP 36.8; O2SAT 100
[2023-06-24] MEDS: ondansetron HCL 4 MG/2 ML VIAL IVPUSH (12:43)
[2023-06-24] MEDS: Morphine Sulfate 2 MG/ML CARTRIDGE IVPUSH (12:43)
[2023-06-24] MEDS: 0.9 % Sodium Chloride 1,000 ML 999 ML IV (12:43)
[2023-06-24] MEDS: predniSONE 20 MG TABLET 40 MG PO (14:29)
== END 2023-06-24 14:35 | disposition home or self-care (01) ==
PROVIDERS: Physician Assistant Medical; Emergency Provider Emergency Medicine
DX: N13.2 Hydronephrosis with renal and ureteral calculous obstruction (principal)
CPT/HCPCS: 36415; 76775; 80053; 81001; 82248; 83690; 83735; 85025; 87086; 96361; 96374; 96375; 99284; J2270; J2405

== ENCOUNTER 2024-09-16 08:07 | Emergency (ER) | payer OTHER, SELFPAY ==
--- NOTE | ~2024-09-16 | XR_ITS ---
EXAMINATION: XR WRIST, RIGHT CLINICAL INFORMATION: trauma COMPARISON: None available. TECHNIQUE: PA, lateral, oblique, and scaphoid views of the right wrist. FINDINGS: The bones and soft tissues are normal. No fracture. Alignment is anatomic with normal joint spaces. No erosions or abnormal soft tissue calcifications. XR/XR wrist RT min 3V IMPRESSION: Normal right wrist. Electronically signed by: Bakari Bedolla MD 09/16/2024 10:11 AM EDT
--- NOTE | ~2024-09-16 | XR_ITS ---
EXAMINATION: XR HAND, RIGHT CLINICAL INFORMATION: trauma pain to [facility]Ps COMPARISON: None available. TECHNIQUE: PA, lateral, and oblique views of the right hand. FINDINGS: The bones and soft tissues are normal. No fracture. Alignment is anatomic. Joint spaces are maintained. No erosions or soft tissue calcifications. XR/XR hand RT min 3V IMPRESSION: Normal right hand. Electronically signed by: Bakari Bedolla MD 09/16/2024 10:11 AM EDT
[2024-09-16 08:17] VITALS: BP 150/91; PULSE 82; RESP 15; TEMP 37; O2SAT 98; BMI 29.8
--- NOTE | 2024-09-16 08:18 | ED.UPPEXIN ---
HPI - Extremity Injury (Upper) General Chief Complaint: Extremity Injury, Upper Stated Complaint: R hand injury Time Seen by Provider: 09/16/24 10:10 Source: patient Mode of arrival: ambulatory Limitations: no limitations History of Present Illness ED Provider: DEJUAN TRIVEDI narrative: 34 yo female no PMH who is R hand dominant here with pain to R hand and knuckles after punching steering wheel. She has pain to her knuckles no other injuries, she reprots she feels tingling as well. complaint: injury to: right and hand Onset (ago): hour(s) (730am today) Other Extremity Injury: right: hand Other injuries: none Handedness: right Place: other Severity: moderate Relieving factors: none Exacerbating factors: movement of extremity Context: direct blow Associated symptoms: denies other symptoms Related Data Previous Rx's ?Medication ?Instructions ?Recorded naproxen 500 mg tablet (Naprosyn) 500 mg PO BID #20 tabs 08/27/22 ondansetron 4 mg disintegrating 4 mg PO Q6H PRN nausea and 08/27/22 tablet vomiting #20 tabs tamsulosin 0.4 mg capsule (Flomax) 0.4 mg PO DAILY #20 caps 08/27/22 morphine 15 mg immediate release 15 mg PO Q8H PRN pain #15 tabs 06/23/23 tablet ondansetron 4 mg disintegrating 4 mg PO Q6-8H PRN nausea and 06/23/23 tablet vomiting #10 tabs tamsulosin 0.4 mg capsule (Flomax) 0.4 mg PO BEDTIME #10 caps 06/23/23 prednisone 20 mg tablet 40 mg (2 x 20 mg) PO DAILY 4 days 06/24/23 #8 tabs cyclobenzaprine 10 mg tablet 10 mg PO TID PRN muscle spasm #20 09/16/24 tabs ibuprofen 600 mg tablet 600 mg PO Q6H PRN pain #30 tabs 09/16/24 Allergies Allergy/AdvReac Type Severity Reaction Status Date / Time acetaminophen [From Percocet] Allergy Difficulty Verified 09/16/24 08:18 Breathing oxycodone [From Percocet] Allergy Difficulty Verified 09/16/24 08:18 Breathing Review of Systems Review of Systems: Constitutional : No Fever, No Chills ENT/Mouth : No Ear Pain, No Hoarseness, No sore throat Eyes: No Eye Pain, No Swelling, No Redness, No Foreign Body Cardiovascular : No Chest Pain, No SOB Respiratory : No Cough, No Dyspnea Gastrointestinal : No Nausea, No Vomiting, No Diarrhea, No abdominal Pain Genitourinary : No Dysuria, No Hematuria Musculoskeletal : positive joint pain, No Myalgias, pos Joint Swelling Skin : No Skin lacerations, No rash Neuro : No Weakness, No Numbness, No Loss of Consciousness, No Dizziness, No Headache All other systems reviewed and are negative [facility] Past Medical History Attestation statement: The following information was validated with the patient. Medical History (Updated 09/16/24 @ 10:23 by Jossy Fam DO) No pertinent past medical history Social History Social History (Updated 09/16/24 @ 08:27 by Jossy Fam DO) Patient Tobacco Use Status: Never used Tobacco Do you have a plan to hurt others: No Plan Physical Exam Vital Signs: Vital Signs: Last Vital Signs Temp 98.6 F 09/16/24 08:17 Pulse 82 09/16/24 08:17 Resp 15 09/16/24 08:17 BP 150/91 H 09/16/24 08:17 Pulse Ox 98 09/16/24 08:17 O2 Del Method Room Air 09/16/24 08:17 BMI result Body Mass Index 29.8 Appearance: Alert. Oriented X3. No acute distress. Eyes: Pupils equal, round and reactive to light. ENT: Pharynx normal. Neck: Normal inspection. Neck supple. CVS: Normal heart rate and rhythm. Pulses normal. Respiratory: No respiratory distress. Breath sounds normal. Abdomen: Soft and nontender. Skin: Skin warm and dry. Normal skin color. Extremities: No lower extremity edema. R hand ttp along 2-5th MCPs and swelling, NV intact, warm and well perfused Neuro: Oriented X 3. No motor deficit. No sensory deficit. CN2-12 intact Medical Decision Making Medical Decision Making MDM Narrative: 34 yo female R hand dominant here with pain to R hand after punching steering wheel she is NV intact at this time will need xray of hand. No ttp in snuff box. Differential Diagnosis Differential Diagnoses: The differential diagnosis associated with the presentation includes contusion, fracture Admission/Observation Consideration of admission/observation: Escalation of care including admission/observation considered volar splint stable for DC as outpatient Lab Data Labs: Lab Results 09/16/24 Range/Units 09:45 Urine Test NEGATIVE (NEGATIVE) Independent Interpretation I performed an independent interpretation of an: Plain X-Ray (no fx) Radiology Impression Discussion of test interpretation with radiology: I have reviewed the radiologist's reading. External Record Review External record reviewed: Outpatient record Prescription Management I considered prescription management with: Pain Medication Procedures Orthopedic Splinting/Casting Injury #1: Side: right Upper Extremity Injury Location: wrist and hand Upper Extremity Immobilizer: volar splint Additional Comments: NV intact Discharge Plan Discharge Clinical Impression: Sprain and strain of wrist, Contusion of hand Patient Disposition: Home, Self-Care Instructions: Contusion in Adults (ED), Wrist Sprain (ED) Additional Instructions: do not get splint wet xrays negative for broken bone rest and keep it elevated can ice through it take off splint in 5 days if you still have pain please follow up with your doctor and repeat xrays return for cold blue and numb hand Prescriptions: New cyclobenzaprine 10 mg tablet 10 mg PO TID PRN (Reason: muscle spasm) Qty: 20 0RF ibuprofen 600 mg tablet 600 mg PO Q6H PRN (Reason: pain) Qty: 30 0RF No Action naproxen [Naprosyn] 500 mg tablet 500 mg PO BID Qty: 20 0RF ondansetron 4 mg tablet,disintegrating 4 mg PO Q6H PRN (Reason: nausea and vomiting) Qty: 20 0RF tamsulosin [Flomax] 0.4 mg capsule 0.4 mg PO DAILY Qty: 20 0RF morphine 15 mg tablet 15 mg PO Q8H PRN (Reason: pain) Qty: 15 0RF Rx Instructions: Partial Fill upon patient request. ondansetron 4 mg tablet,disintegrating 4 mg PO Q6-8H PRN (Reason: nausea and vomiting) Qty: 10 0RF tamsulosin [Flomax] 0.4 mg capsule 0.4 mg PO BEDTIME Qty: 10 0RF prednisone 20 mg tablet 40 mg PO DAILY 4 Days Qty: 8 0RF Stand Alone Forms: Work/School Release Print Language: Belarusian
[2024-09-16 09:50] LABS: UPreg QC Valid YES; Urine Pregnancy NEGATIVE (NEGATIVE)
[2024-09-16 10:56] VITALS: BP 150/91; PULSE 82; RESP 15; TEMP 37; O2SAT 98
--- OUTSIDE RECORDS SUMMARY | 2024-09-16 11:39 | XMS_ITS ---
Author Organization [facility] Address [address] [place] [address] Care Team Providers Care Media Buyer Name Role Phone Zofia Vazquez Primary Care Provider Kylah Henry Unavailable [phone] Mau Montanez Unavailable [phone] REASON FOR VISIT GW (doxy) Encounters Encounter Location Date Provider Diagnosis [facility] [address] [place] [address] 08/27/2024 Mau Montanez Plan Of Treatment Next Appt Details Provider Name:Mau corcoran, 09/17/2024 04:00:00 PM, [address] [place], [address], Provider Name:Zofia Vazquez, 10/12/2024 03:30:00 PM, [address] [place], [address], Provider Name:Mau corcoran, 11/04/2024 11:30:00 AM, [address] [place], [address], Progress Notes * SHAKEEL KEENEDOB:1990 (34 yo F)Acc No.[id number]:08/27/2024 Patient:?SHAKEEL KEENE Provider:?Mau Montanez DO :1990???Age:34 Y???Sex:Female D ate:08/27/2024 Address:[address] [place] [address], [address], [place], [place] Pcp:Zofia Vazquez Subjective: * Chief Complaints: * ???GW (doxy) * HPI: ???Interim History:? Pt cancelled appt with < 24h notice. * Medical History:? * Surgical History:? * Hospitalization/Major Diagno stic Procedure:? * Medications:? Objective: * Vitals:? Assessment: Plan: * Treatment: * Procedure Codes:? * Images: Billing Information: * Visit Code:? * Procedure Codes:? * Sign off status: Completed true * Provider:?Mau Montanez DO Date:?11/2024 Generated for Figueroa mckeon/Alfreda/Theodoraitting on:?09/16/2024 11:39 AM EDT
== END 2024-09-16 10:40 | disposition home or self-care (01) ==
PROVIDERS: Emergency Provider Emergency Medicine
DX: S63.501A Unspecified sprain of right wrist, initial encounter (principal); S66.911A Strain of unspecified muscle, fascia and tendon at wrist and hand level, right hand, initial encounter; S60.221A Contusion of right hand, initial encounter; W22.09XA Striking against other stationary object, initial encounter; M79.641 Pain in right hand; Y93.89 Activity, other specified; Y92.810 Car as the place of occurrence of the external cause; Y99.9 Unspecified external cause status
CPT/HCPCS: 29125; 73110; 73130; 81025; 99283

== ENCOUNTER → 2024-09-16 08:17 | Outpatient (BNV) | payer OTHER, SELFPAY | PROVIDERS: Emergency Provider Emergency Medicine; Visit Provider Radiology Diagnostic Radiology | DX: M79.641 Pain in right hand (principal); M25.531 Pain in right wrist | CPT/HCPCS: 73110; 73130 ==